=== PATIENT | female | born 1995 | race Caucasian/White ===

== ENCOUNTER 2017-09-17 19:03 | Emergency (ER) | payer OTHER ==
[~2017-09-17] VITALS: Ht 162.6 cm; Wt 55.0 kg
[2017-09-17 19:05] VITALS: BP 140/85; PULSE 98; RESP 16; TEMP 98.3; O2SAT 100
[2017-09-17] MEDS ORDERED: CEFD300C PO (19:22)
[2017-09-17] MEDS ORDERED: LIDOCAINE VISCOUS 2% SOLN 15 ML UDC SWISH-SWAL ONE (19:45)
[2017-09-17] MEDS ORDERED: ALUMINUM/MAGNESIUM/SIMETH 30 ML CUP PO ONE (19:45)
--- NOTE | 2017-09-17 20:15 | PD ---
HPI Chief Complaint: Allergic/Adverse Reaction Time Seen by Provider: 19:19 Travel History International Travel<30 days: No Contact w/Intl Traveler<30days: No Traveled to known affect area: No History of Present Illness HPI Patient took Cefdinir near for an ear lymph node and three days into the treatment she is now having substernal tightness and throat tightness, mother ( a [employer] ) sent her to ER for allergic reaction eval , pt denies stridor no drooling no voice change , no hives , took nothing for this episode and has not seen another MD for this , she only talked on the phone with the mother. [facility] Past Medical History Medical History: Denies Significant Hx ?: Not LMP: 06/2017 Past Surgical History Tonsillectomy: Yes Social History Alcohol Use: No Tobacco Use: No Substance Use: No Allergies-Medications (Allergen,Severity, Reaction): Coded Allergies: No Known Allergies (Verified Allergy, Unknown, 09/17/17) Reported Meds & Prescriptions Reported Meds & Active Scripts Active Reported Cefdinir 300 Mg Cap 300 Mg PO BID Review of Systems Except as stated in HPI: all other systems reviewed are Neg General / Constitutional: No: Fever HENT: Positive: Headaches, Sore Throat, No: Vertigo, Lightheadedness Cardiovascular: Positive: Chest Pain or Discomfort, No: Palpitations, Irregular Rhythm Respiratory: No: Cough, Shortness of Breath Gastrointestinal: Positive: Nausea Physical Exam Narrative GENERAL: pt has no signs of distress and no otther allergic signs no resp distress SKIN: Warm and dry. HEAD: Atraumatic. Normocephalic. EYES: Pupils equal and round. No scleral icterus. No injection or drainage. ENT: uvula normal post pharynx completely open no swelling no stridor No nasal bleeding or discharge. Mucous membranes pink and moist. NECK: Trachea midline. No JVD. CARDIOVASCULAR: Regular rate and rhythm. RESPIRATORY: No accessory muscle use. Clear to auscultation. Breath sounds equal bilaterally. GASTROINTESTINAL: Abdomen soft, non-tender, nondistended. Hepatic and splenic margins not palpable. MUSCULOSKELETAL: Extremities without clubbing, cyanosis, or edema. No obvious deformities. NEUROLOGICAL: Awake and alert. No obvious cranial nerve deficits. Motor grossly within normal limits. Five out of 5 muscle strength in the arms and legs. Normal speech. PSYCHIATRIC: Appropriate mood and affect; insight and judgment normal. Data Data Last Documented VS Vital Signs Date Time Temp Pulse Resp B/P (MAP) Pulse Ox O2 Delivery O2 Flow Rate FiO2 09/17/17 21:13 09/17/17 21:12 89 14 100 Room Air 09/17/17 19:05 98.3 Orders Orders Lidocaine 2% Viscous (Xylocaine 2% Visco (09/17/17 19:45) Al-Mag Hy-Si 40-40-4 Mg/Ml Liq (Mag-Al P (09/17/17 19:45) Ed Discharge Order (09/17/17 20:45) MDM Medical Decision Making Medical Screen Exam Complete: Yes Emergency Medical Condition: Yes Differential Diagnosis pt has allergic feeling in throat vs pt has GI related discomfort from Cefdinir , pt is feeling much better after GI cocktail Narrative Course pt given GI cocktail and feels tightness in the chest relieved, no signs nor symptoms of allergic reaction and airway is without effect Diagnosis Primary Impression: Chest tightness Patient Instructions: Gastritis (ED), General Instructions Disposition: 01 DISCHARGE HOME Condition: Good Brad Morris MD Sep 17, 2017 20:15
[2017-09-17 21:12] VITALS: BP 136/78; PULSE 89; RESP 14; O2SAT 100
== END 2017-09-17 21:18 | disposition home or self-care (01) ==
LOC: NEPC 19:03
DX: R07.89 Other chest pain (principal)
CPT/HCPCS: 99283